=== PATIENT | female | born 1960 | race African-American/Black ===

== ENCOUNTER 2017-12-22 11:34 | Emergency (ER) | payer BC ==
[2017-12-22] MEDS ORDERED: oxyCODONE/APAP 5/325 1 TAB TABLET PO (12:15)
[2017-12-22] MEDS: HYDROcodone/APAP 5/325MG 1 TAB TABLET PO ×2 (12:47→12:50)
[2017-12-22] MEDS: LIDOCAINE 2%/EPI 1:100,000 20 ML VIAL. IJ (12:48)
== END 2017-12-22 13:18 | disposition home or self-care (01) ==
LOC: ER 11:34
DX: L02.415 Cutaneous abscess of right lower limb (principal); M19.90 Unspecified osteoarthritis, unspecified site; Z88.2 Allergy status to sulfonamides; Z88.1 Allergy status to other antibiotic agents; Z90.710 Acquired absence of both cervix and uterus; Z98.1 Arthrodesis status
CPT/HCPCS: 10060; 99283; J3490

== ENCOUNTER 2019-03-22 10:36 | Outpatient (CLI) | payer BC ==
[~2019-03-22 10:36] MED LIST: AMOX1TAB61 PO
[2019-03-22 14:10] VITALS: BP 106/52
[2019-03-22 14:55] VITALS: BP 111/58
[2019-03-22 14:55] LABS: CSF PROTEIN 29.7 mg/dL (15.0-45.0)
--- NOTE | 2019-03-22 14:56 | NUR ---
Care After Lumbar Puncture instructions reviewed with patient and she verbalized understanding. Vital signs stable and patient stated she felt like she could walk out to her car. Spouse accompanied patient out of CV/OBS area to take home.
--- NOTE | 2019-03-22 16:14 | RAD ---
EXAM: FLUOROSCOPICALLY GUIDED LUMBAR PUNCTURE. HISTORY: Intracranial hypertension, headache. Fluoroscopically guided lumbar puncture is requested. FINDINGS: The procedure along with its risks and benefits were explained to the patient. They agreed to proceed. A timeout procedure was performed. The patient was placed prone on the fluoroscopy table. The L3-4 level was localized fluoroscopically. The overlying skin was sterilely prepped and infiltrated with 1% lidocaine for local anesthesia. Under fluoroscopic guidance, a 20-gauge spinal needle was advanced into the thecal sac. A fluoroscopic image was obtained. Fluoroscopy time 0.2 minutes. There was spontaneous return of clear cerebrospinal fluid. 12 mL were collected. Instrumentation was withdrawn and a sterile dressing placed. There were no immediate complications. Postprocedural instructions were provided. Opening pressure was 22 cm water. Closing pressure was 15 cm water. IMPRESSION: 1. Successful fluoroscopically guided lumbar puncture. Electronically signed by: Zenaida Real MD (03/22/2019 4:11 PM) [facility]
[2019-03-22 16:16] LABS: CSF CLARITY CLEAR; CSF COLOR COLORLESS; CSF RBC COUNT 822 /cmm (Not Established); CSF WBC COUNT 1 /cmm (Not Established)
== END 2019-03-22 15:07 | disposition home or self-care (01) ==
LOC: RAD 10:36
PROVIDERS: ATTEND Psychiatry & Neurology Neurology with Special Qualifications in Child Neurology
DX: R51 Headache (principal); G93.2 Benign intracranial hypertension
CPT/HCPCS: 62270; 82945; 84157; 89051